=== PATIENT | female | born 1950 | race Caucasian/White ===

== ENCOUNTER 2016-08-09 09:16 | Emergency (ER) | payer MEDICAID ==
[~2016-08-09] VITALS: Ht 162.6 cm; Wt 96.0 kg
[2016-08-09 09:20] VITALS: Ht 162.6 cm; Wt 96.0 kg
[2016-08-09] MEDS ORDERED: ACETAMINOPHEN 325 MG TAB PO ONE (11:00)
--- NOTE | 2016-08-09 11:05 | RADRPT ---
PROCEDURE: XR, Chest. CLINICAL INDICATION: Cough/fever. TECHNIQUE: AP chest COMPARISON: None available. FINDINGS: There is no acute infiltrate in the lungs. There is calcified atherosclerosis of the aortic arch. No pleural effusion. The heart is not enlarged. IMPRESSION: 1. Unremarkable chest x-ray. 2. Calcified atherosclerosis of the aortic arch. RPTAT: GG .Freddy Pandya MD, MD Date Time Electronically viewed and signed by .Freddy Pandya MD, on 08/09/2016 11:05 .Y/
[2016-08-09 11:13] LABS: ADD UMIC YES; URINE BILIRUBIN (Dip) 3+ (NEGATIVE); URINE BLOOD (Dip) 3+ (NEGATIVE); URINE COLOR AMBER (YELLOW); URINE KETONES (Dip) TRACE (NEGATIVE); URINE LEUKOCYTE ESTERASE (Dip) 2+ (NEGATIVE); URINE NITRITE (Dip) POSITIVE (NEGATIVE); URINE TOTAL PROTEIN (Dip) 2+ (NEGATIVE); URINE UROBILINOGEN (Dip) >8.0 E.U./dL (0.1-1.0)
[2016-08-09 11:17] LABS: ADD SCAN DIFF NO
[2016-08-09 11:20] LABS: ICTOTEST POSITIVE (NEGATIVE)
[2016-08-09 11:21] LABS: BACTERIA,URINE MANY; SQUAMOUS EPITHELIAL CELL,UR FEW
[2016-08-09 11:27] LABS: ABNORMAL IP MESSAGE 1; BASOPHILS % 0.2 % (0.0-2.0); HEMATOCRIT 39.2 % (37.0-47.0); HEMOGLOBIN 12.8 g/dl (12.0-16.0); LYMPHOCYTES # 0.5 10^3/ul (0.8-2.9); LYMPHOCYTES % 3.2 % (15.0-51.0); MEAN CORPUSCULAR HEMOGLOBIN 29.1 pg (29.0-33.0); MEAN CORPUSCULAR HGB CONC 32.7 g/dl (32.0-37.0); MEAN CORPUSCULAR VOLUME 89.1 fl (82.0-101.0); MEAN PLATELET VOLUME 10.3 fl (7.4-10.4); MONOCYTE # 0.4 10^3/ul (0.3-0.9); MONOCYTES % 2.5 % (0.0-11.0); NEUTROPHIL # 15.9 10^3/ul (1.6-7.5); NEUTROPHILS % 93.4 % (39.0-77.0); PLATELET COUNT 201 10^3/UL (140-415); RED CELL DISTRIBUTION WIDTH 13.3 % (11.5-14.5)
[2016-08-09 11:28] LABS: ALBUMIN 3.6 g/dl (3.3-4.9); POTASSIUM 4.4 mmol/L (3.5-5.1)
[2016-08-09 11:30] LABS: CREATININE 1.26 mg/dl (0.44-1.00)
[2016-08-09 11:31] LABS: ALBUMIN/GLOBULIN RATIO 0.9; BILIRUBIN,DIRECT 0.3 mg/dl (0.00-0.20); BILIRUBIN,INDIRECT 0.7 mg/dl (0-1.1); CALCIUM 8.6 mg/dl (8.4-10.2); TOTAL PROTEIN 7.6 g/dl (6.1-8.1)
[2016-08-09] MEDS ORDERED: SOD CHLORIDE 0.9% 1,000 ML IV ONE (11:53)
[2016-08-09] MEDS ORDERED: CEFTRIAXONE 1 GM/50 ML (PMX) 50 ML IVPB ONE (12:00)
[2016-08-09] MEDS ORDERED: TYL500 PO (13:35)
[2016-08-09] MEDS ORDERED: CIPR500T4 PO (13:35)
[2016-08-09] MEDS ORDERED: ONDA8TAB14 PO (13:35)
--- NOTE | 2016-08-09 13:37 | ERD ---
ER Documentation Chief Complaint Date/Time DATE: 08/09/16 TIME: 13:35 Chief Complaint fever , lower back pain x 5 days HPI 65-year-old female presents with subjective fevers for the last 5 days. She also has left lower abdominal pain and left flank pain. She denies dysuria, cough, shortness with chest pain. She has a right-sided abdominal pain. ROS All systems reviewed and are negative except as per history of present illness. Medications Home Meds Active Scripts Acetaminophen* (Tylenol*) 500 Mg Tab, 500 MG PO Q4H Y for MILD PAIN LEVEL 1-3, # 14 TAB Prov:LIZZIE MIGUEL MD 08/09/16 Ondansetron (Ondansetron Odt) 8 Mg Tab.rapdis, 8 MG PO Q6H Y for NAUSEA AND/OR VOMITING, #5 TAB Prov:LIZZIE MIGUEL MD 08/09/16 Ciprofloxacin Hcl* (Ciprofloxacin Hcl*) 500 Mg Tablet, 500 MG PO BID for 10 Days , TAB Prov:LIZZIE MIGUEL MD 08/09/16 Allergies Allergies: Coded Allergies: aspirin (Verified Allergy, Unknown, 08/09/16) PMhx/Soc History of Surgery: No Anesthesia Reaction: No Hx Neurological Disorder: No Hx Respiratory Disorders: No Hx Cardiac Disorders: No Hx Psychiatric Problems: No Hx Miscellaneous Medical Probl: No Hx Alcohol Use: No Hx Substance Use: No Hx Tobacco Use: No Physical Exam Vitals Vital Signs Date Time Temp Pulse Resp B/P Pulse Ox O2 Delivery O2 Flow Rate FiO2 08/09/16 09:20 100.5 91 18 121/52 97 Physical Exam Const: [] Head: Atraumatic Eyes: Normal Conjunctiva ENT: Normal External Ears, Nose and Mouth. Neck: Full range of motion..~ No meningismus. Resp: Clear to auscultation bilaterally Cardio: Regular rate and rhythm, no murmurs Abd: Soft, non tender, non distended. Normal bowel sounds Skin: No petechiae or rashes Back: No midline or flank tenderness Ext: No cyanosis, or edema Neur: Awake and alert Psych: Normal Mood and Affect Result Diagram: 08/09/16 1106 08/09/16 1106 Results 24 hrs Laboratory Tests Test 08/09/16 10:36 08/09/16 11:06 Urine Color CLAUDIA Urine Clarity CLEAR Urine pH 5.5 Urine Specific [place] >=1.030 Urine Ketones TRACE Urine Nitrite POSITIVE Urine Bilirubin 3+ Urine Ictotest POSITIVE Urine Urobilinogen >8.0 E.U./dL Urine Leukocyte Esterase 2+ Urine Microscopic RBC 5-10/HPF Urine Microscopic WBC 25-50/HPF Urine Squamous Epithelial Cells FEW Urine Bacteria MANY Urine Hemoglobin 3+ Urine Glucose 0.1%% Urine Total Protein 2+ White Blood Count 17.010^3/ul Red Blood Count 4.4010^6/ul Hemoglobin 12.8g/dl Hematocrit 39.2% Mean Corpuscular Volume 89.1fl Mean Corpuscular Hemoglobin 29.1pg Mean Corpuscular Hemoglobin Concent 32.7g/dl Red Cell Distribution Width 13.3% Platelet Count 60828^3/UL Mean Platelet Volume 10.3fl Neutrophils % 93.4% Lymphocytes % 3.2% Monocytes % 2.5% Eosinophils % 0.0% Basophils % 0.2% Nucleated Red Blood Cells % 0.0/100WBC Neutrophils # 15.910^3/ul Lymphocytes # 0.510^3/ul Monocytes # 0.410^3/ul Eosinophils # 0.010^3/ul Basophils # 0.010^3/ul Nucleated Red Blood Cells # 0.010^3/ul Sodium Level 134mmol/L Potassium Level 4.4mmol/L Chloride Level 96mmol/L Carbon Dioxide Level 25mmol/L Anion Gap 17 Blood Urea Nitrogen 23mg/dl Creatinine 1.26mg/dl Glucose Level 127mg/dl Calcium Level 8.6mg/dl Total Bilirubin 1.0mg/dl Direct Bilirubin 0.30mg/dl Indirect Bilirubin 0.7mg/dl Aspartate Amino Transf (AST/SGOT) 49IU/L Alanine Aminotransferase (ALT/SGPT) 60IU/L Alkaline Phosphatase 162IU/L Total Protein 7.6g/dl Albumin 3.6g/dl Globulin 4.00g/dl Albumin/Globulin Ratio 0.90 Lipase 30U/L Current Medications Medications (Trade) Dose Ordered Sig/Trever Route PRN Reason Start Time Stop Time Status Last Admin Dose Admin Acetaminophen 650 mg 650 mg ONCE ONCE PO 08/09/16 11:00 08/09/16 11:01 DC 08/09/16 11:04 Ceftriaxone Sodium 50 ml @ 100 mls/hr ONCE ONCE IVPB 08/09/16 12:00 08/09/16 12:29 DC 08/09/16 12:43 Sodium Chloride (NS) 1,000 ml @ 0 mls/hr Q0M ONCE IV 08/09/16 11:53 08/09/16 12:02 DC 08/09/16 12:43 Procedures/MDM CBC shows white blood cell count of 17. CMP shows renal insufficiency slight hyponatremia hypochloremia. Patient was given 1 L normal saline IV and urine shows positive leukocytes, nitrites and hemoglobin was sent for culture. Patient was given Rocephin 1 g IV as well. Patient had a benign abdomen on serial exam and felt much better. Patient presents with UTI and febrile illness likely signs of UTI or pyelonephritis. Patient currently appears appropriate for outpatient management will be treated with Cipro instructions for clear fluids at home. She should recheck the next 24 hours for vomiting, worsening pain, new worsening symptoms with primary doctor this week. Signs or symptoms do not suggest appendicitis sepsis, diverticulitis, abscess or acute abdomen but patient should recheck the next day as directed. Departure Diagnosis: Primary Impression: UTI (urinary tract infection) Urinary tract infection type: acute cystitis Hematuria presence: without hematuria Qualified Code: N30.00 - Acute cystitis without hematuria Additional Impression: Fever Fever type: unspecified Qualified Code: R50.9 - Fever, unspecified fever cause Condition: Stable Patient Instructions: Understanding Urinary Tract Infections (UTIs), Fever Control (Adult) Additional Instructions: JESUS MAC . DEAN CRAIG PARA VOMITO , MAS DOLOR, SIMPTOMAS. LIZZIE MIGUEL MD Aug 09, 2016 13:37
[2016-08-09 14:15] VITALS: BP 101/53; PULSE 82; RESP 18; TEMP 99.4
== END 2016-08-09 14:17 | disposition home or self-care (01) ==
LOC: FTE 09:16
DX: N30.00 Acute cystitis without hematuria (principal)
CPT/HCPCS: 36415; 71010; 80053; 81001; 83690; 85025; 87040; 87086; 96374; J0696; J7030; Z7502; Z7610; 81003

== ENCOUNTER 2016-08-10 10:04 | Inpatient (IN) | payer MEDICAID ==
[~2016-08-10] VITALS: Ht 162.6 cm; Wt 96.7 kg
[~2016-08-10 10:04] MED LIST: CIPR500T4 PO; ONDA8TAB14 PO; TYL500 PO
[2016-08-10] MEDS ORDERED: SODIUM CHLORIDE 0.9% 1L BAG IV* STA (11:19)
[2016-08-10] MEDS ORDERED: ONDANSETRON 4 MG INJ IV STA (11:19)
[2016-08-10] MEDS ORDERED: morphine 2 MG INJ IV STA (11:19)
[2016-08-10] MEDS ORDERED: IBUPROFEN 600 MG TAB PO ONE (11:30)
--- NOTE | 2016-08-10 11:48 | ERA ---
ER Documentation Chief Complaint Date/Time DATE: 08/10/16 TIME: 11:39 Chief Complaint Complains of fever x 3 days was seen yesterday asked to come back if worse HPI 65-year-old woman presents with continued fever and suprapubic abdominal pain and left flank pain despite using ciprofloxacin as an outpatient for urinary tract infection. She was seen and evaluated about 5 days ago and diagnosed with UTI and after treatment with ceftriaxone 1 g IV and workup she was discharged with ciprofloxacin to use orally. She states she has been using her antibiotics without relief. Her recent blood culture was also positive for gram -negative rods. She denies headache or blurry vision, no neck pain or stiffness , no chest pain or shortness of breath, no cough, no rash. ROS All systems reviewed and are negative except as per history of present illness. Medications Home Meds Active Scripts Acetaminophen* (Tylenol*) 500 Mg Tab, 500 MG PO Q4H Y for MILD PAIN LEVEL 1-3, # 14 TAB Prov:LIZZIE MIGUEL MD 08/09/16 Ondansetron (Ondansetron Odt) 8 Mg Tab.rapdis, 8 MG PO Q6H Y for NAUSEA AND/OR VOMITING, #5 TAB Prov:LIZZIE MIGUEL MD 08/09/16 Ciprofloxacin Hcl* (Ciprofloxacin Hcl*) 500 Mg Tablet, 500 MG PO BID for 10 Days , TAB Prov:LIZZIE MIGUEL MD 08/09/16 Allergies Allergies: Coded Allergies: aspirin (Verified Allergy, Unknown, 08/09/16) PMhx/Soc Obesity, recent UTI treated as an outpatient with ciprofloxacin, arthritis History of Surgery: No Anesthesia Reaction: No Hx Neurological Disorder: No Hx Respiratory Disorders: No Hx Cardiac Disorders: No Hx Psychiatric Problems: No Hx Miscellaneous Medical Probl: No Hx Alcohol Use: No Hx Substance Use: No Hx Tobacco Use: No Smoking Status: Never smoker FmHx Family History: No diabetes Physical Exam Vitals Vital Signs Date Time Temp Pulse Resp B/P Pulse Ox O2 Delivery O2 Flow Rate FiO2 08/10/16 11:39 Nasal Cannula 08/10/16 11:00 84 20 110/54 99 Room Air 08/10/16 10:10 101.4 102 20 103/46 92 Physical Exam GENERAL: Well-developed, well-nourished, mild discomfort, febrile HEENT: Moist mucous membranes, pink conjunctiva, no cervical spine tenderness or step-off deformities, no goiter, no jaundice or icterus, extraocular movements intact without pain. No submandibular induration, and no pharyngeal erythema NEURO: Alert and oriented 3, cranial nerves II through XII intact bilaterally, pupils equal round reactive to light, no focal deficits or facial asymmetry, sensation intact distally Strength 5/5 in upper and lower extremities bilaterally CARDIAC: Regular rate and rhythm, no murmurs rubs or gallops LUNGS: Clear bilaterally no wheezing crackles or stridor ABDOMEN: Soft nontender, no guarding, no rigidity, no rebound, no psoas sign no obturator sign. Normoactive bowel sounds SKIN: Warm and dry to touch, no abrasions, contusions, or hematomas, no lacerations, no ecchymosis, no target lesions, and without ulcers EXTREMITIES: No clubbing cyanosis or edema, calves are bilaterally symmetrical, no Homans sign, no popliteal cord sign. Distal pulses equal and bilateral PSYCH: Normal affect without agitation or irritability Result Diagram: 08/10/16 1125 08/10/16 1125 Results 24 hrs Laboratory Tests Test 08/10/16 11:25 White Blood Count 13.710^3/ul Red Blood Count 4.0410^6/ul Hemoglobin 12.0g/dl Hematocrit 35.3% Mean Corpuscular Volume 87.4fl Mean Corpuscular Hemoglobin 29.7pg Mean Corpuscular Hemoglobin Concent 34.0g/dl Red Cell Distribution Width 13.3% Platelet Count 05222^3/UL Mean Platelet Volume 11.2fl Neutrophils % 95.4% Lymphocytes % 1.4% Monocytes % 2.1% Eosinophils % 0.1% Basophils % 0.3% Nucleated Red Blood Cells % 0.0/100WBC Neutrophils # 13.110^3/ul Lymphocytes # 0.210^3/ul Monocytes # 0.310^3/ul Eosinophils # 0.010^3/ul Basophils # 0.010^3/ul Nucleated Red Blood Cells # 0.010^3/ul Prothrombin Time 14.8Sec Prothrombin Time Ratio 1.2 INR International Normalized Ratio 1.16 Activated Partial Thromboplast Time 36.5Sec Sodium Level 133mmol/L Potassium Level 3.6mmol/L Chloride Level 96mmol/L Carbon Dioxide Level 21mmol/L Anion Gap 20 Blood Urea Nitrogen 28mg/dl Creatinine 1.25mg/dl Glucose Level 102mg/dl Lactic Acid Level 2.4mmol/L Calcium Level 8.4mg/dl Total Bilirubin 0.9mg/dl Direct Bilirubin 0.40mg/dl Indirect Bilirubin 0.5mg/dl Aspartate Amino Transf (AST/SGOT) 48IU/L Alanine Aminotransferase (ALT/SGPT) 58IU/L Alkaline Phosphatase 218IU/L Troponin I 0.063ng/ml Total Protein 7.9g/dl Albumin 3.5g/dl Globulin 4.40g/dl Albumin/Globulin Ratio 0.79 Lipase 49U/L Current Medications Medications (Trade) Dose Ordered Sig/Trever Route PRN Reason Start Time Stop Time Status Last Admin Dose Admin Morphine Sulfate (morphine) 2 mg ONCE STAT IV 08/10/16 11:19 08/10/16 11:21 DC 08/10/16 11:34 Ondansetron HCl (Zofran Inj) 4 mg ONCE STAT IV 08/10/16 11:19 08/10/16 11:21 DC 08/10/16 11:33 Sodium Chloride (NS) 3,410 ml BOLUS OVER 2 HOURS STAT IV* 08/10/16 11:19 08/10/16 11:21 DC 08/10/16 11:33 Ibuprofen 600 mg 600 mg ONCE ONCE PO 08/10/16 11:30 08/10/16 11:31 DC 08/10/16 11:33 Cefepime HCl (Maxipime 1gm/50 ml (Pmx)) 50 ml @ 100 mls/hr ONCE ONCE IVPB 08/10/16 12:00 08/10/16 12:29 DC 08/10/16 12:13 Procedures/[facility] IV line was established patient was placed on 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 Patient was febrile. Blood and urine cultures have been ordered results are pending I will follow-up. EKG performed, read by me: 88 bpm, normal sinus rhythm, normal axis, no acute ST segment changes, narrow QRS complex, with good R-wave progression in precordial leads. One AP view of the chest performed, read by me reveals no acute infiltrates, normal mediastinum, sharp costophrenic and cardiac borders, no air under the diaphragm. Otherwise unremarkable chest x-ray. CT scan of abdomen and pelvis was performed results were unremarkable. Please refer to radiologist dictation for full report. I reviewed her recent blood cultures and they were positive for gram-negative rods. Recent urine analysis was positive for infection. Patient's infectious symptoms have not stabilized and the patient is at risk of rapid decompensation. The patient will be admitted for careful hydration, antibiotic therapy, and infectious source control. CBC reveals a leukocytosis of 14, electrolytes revealed dehydration and acute kidney injury with a BUN/creatinine of 28/1.3, hyponatremia at 133, liver function tests normal, troponin negative, urine analysis positive. I treated the patient here with cefepime 1 g IV, about 3 L normal saline intravenously, ibuprofen 600 mg p.o. for fever, morphine 2 mg IV and Zofran 4 mg IV with good effect. Severe Sepsis Assessment: Infectious Source: pyleonephritis Patient does not meet criteria for end-organ damage, despite elevated lactic acid at 2.4 her vital signs and respiratory rate are within normal limits, lab criteria unremarkable. Severe Sepsis Managment: Blood Cultures X 2 before broad spectrum antibiotics initiated within 3 hours of recognition. 30 ml/kg NS bolus Completed Initial Lactate: Elevated at 2.4 Repeat Lactate pending Critical Care: Time: 40 minutes, this was time separate from other procedures Treatments/Evaluations: Emergent fluid management, while maintaining close respiratory support. Immediate broad spectrum antibiotic therapy. Simultaneous assessment for possible sources in order to direct therapy. Consideration for invasive and chemical support to prevent respiratory or cardiac collapse. Septic Shock Assessment (1 hour post 30 ml/kg fluid bolus): Hypotension (SBP < 90 or 40 mmHg drop, MAP < 65): No Lactic acid > 4.0 No Perfusion Reassessment for Septic Shock: Temp afebrile, pulse 84, respiratory rate 18 breaths per minute, blood pressure 120/80, Heart Exam: Regular rate and rhythm Lung Exam: No Crackles Capillary Refill: Less than 2 second Peripheral Pulses: Radially present Skin: [place], warm and dry Hypotensive Treatment (not required for isolated lactic acid elevation): Comfort Care: No Central LIne: Not indicated Vasopressor started: Not indicated I considered further perfusion assessment with CVP measurement, SCVO2, bedside ultrasound volume assessment, passive leg raise, trial of further fluid bolus. And preceded with IV antibiotics and IV fluid resuscitation Accepting Care Team: Current data and ongoing care discussed. Time: Time of admission Primary Provider: Hospitalist Consulting: Infectious disease Outstanding Data: none Departure Diagnosis: Primary Impression: UTI (urinary tract infection) Qualified Code: N30.00 - Acute cystitis without hematuria Additional Impressions: Sepsis Qualified Code: A41.51 - Sepsis due to Escherichia coli Positive blood cultures Hyponatremia Acute kidney injury Condition: BECKY Uribe MD August 10, 2016 11:48
[2016-08-10 11:51] LABS: ADD SCAN DIFF NO
[2016-08-10 11:59] LABS: ABNORMAL IP MESSAGE 1; BASOPHILS % 0.3 % (0.0-2.0); EOSINOPHILS % 0.1 % (0.0-7.0); HEMATOCRIT 35.3 % (37.0-47.0); LYMPHOCYTES # 0.2 10^3/ul (0.8-2.9); LYMPHOCYTES % 1.4 % (15.0-51.0); MEAN CORPUSCULAR HEMOGLOBIN 29.7 pg (29.0-33.0); MEAN CORPUSCULAR VOLUME 87.4 fl (82.0-101.0); MEAN PLATELET VOLUME 11.2 fl (7.4-10.4); MONOCYTE # 0.3 10^3/ul (0.3-0.9); MONOCYTES % 2.1 % (0.0-11.0); NEUTROPHIL # 13.1 10^3/ul (1.6-7.5); PLATELET COUNT 190 10^3/UL (140-415); RED BLOOD COUNT 4.04 10^6/ul (4.20-5.40); RED CELL DISTRIBUTION WIDTH 13.3 % (11.5-14.5); WHITE BLOOD COUNT 13.7 10^3/ul (4.8-10.8)
[2016-08-10] MEDS ORDERED: CEFEPIME 1GM/50 ML (PMX) 50 ML IVPB ONE (12:00)
--- NOTE | 2016-08-10 12:02 | RADRPT ---
PROCEDURE: XR Chest. CLINICAL INDICATION: Cough. Sepsis. TECHNIQUE: Single frontal view. COMPARISON: 08 09 16. FINDINGS: The lungs are clear. The heart size is normal. There is calcification in the aorta consistent with atherosclerosis. There is no pleural effusion. There is no pneumothorax. IMPRESSION: 1. Atherosclerosis. 2. Otherwise normal chest x-ray. RPTAT: QQ .Minesh Vázquez MD, MD Date Time Electronically viewed and signed by .Minesh Vázquez MD, MD on 08/10/2016 12:02 .R/
[2016-08-10 12:05] LABS: NEUTROPHILS % 95.4 % (39.0-77.0)
[2016-08-10 12:14] LABS: ALBUMIN 3.5 g/dl (3.3-4.9); POTASSIUM 3.6 mmol/L (3.5-5.1)
[2016-08-10 12:16] LABS: CREATININE 1.25 mg/dl (0.44-1.00)
[2016-08-10 12:17] LABS: ALBUMIN/GLOBULIN RATIO 0.79; BILIRUBIN,DIRECT 0.4 mg/dl (0.00-0.20); BILIRUBIN,INDIRECT 0.5 mg/dl (0-1.1); BILIRUBIN,TOTAL 0.9 mg/dl (0.2-1.3); CALCIUM 8.4 mg/dl (8.4-10.2); TOTAL PROTEIN 7.9 g/dl (6.1-8.1)
[2016-08-10 12:25] LABS: INR 1.16; PROTIME 14.8 Sec (12.2-14.2); PT RATIO 1.2
[2016-08-10 12:26] LABS: PARTIAL THROMBOPLASTIN TIME 36.5 Sec (25.0-35.0)
[2016-08-10 12:27] LABS: TROPONIN-I 0.063 ng/ml (0.00-0.12)
--- NOTE | 2016-08-10 12:56 | RADRPT ---
PROCEDURE: CT Abdomen and Pelvis without contrast. CLINICAL INDICATION: Abdominal and pelvic pain. TECHNIQUE: CT scan of the abdomen and pelvis without contrast was performed. Coronal and sagittal reformatted images were obtained from the axial source images. Images were reviewed on a high-res[employer] PACS workstation. Total exam DLP is 1351.81 mGy-cm. CTDIvol is 21.33 mGy. One or more of the following dose reduction techniques were used: Automated exposure control, adjustment of the mA and/ or kV according to patient size, use of iterative reconstruction technique. COMPARISON: None. FINDINGS: The lung bases are normal. There is no pleural effusion. The liver is normal in size and mildly diffusely decreased in attenuation. There is no focal hepati c lesion. The gallbladder and bile ducts are normal. The spleen is normal in size. There is no focal splenic lesion. Both adrenals are normal with no enlargement or mass. The pancreas is unremarkable with no mass or evidence of pancreatitis. There is no renal mass or hydronephrosis. There is no renal calculus or ureteral calculus. The abdominal aorta is not dilated. There is calcification in the aorta consistent with atherosclero sis. There is no retroperitoneal lymphadenopathy or mass. There is no pelvic lymphadenopathy or mass. The bladder and distal ureters are normal. The periappendiceal region is unremarkable with no evidence of appendicitis. The bowel and mesentery are normal. There is no free fluid or free gas. There are degenerative changes of the spine and hips. The osseous structures are otherwise unremark able with no fracture or lytic lesion. IMPRESSION: 1. Fatty metamorphosis of the liver. 2. Atherosclerosis. 3. Degenerative changes of the spine and hips. 4. Otherwise unremarkable CT scan of the abdomen and pelvis. RPTAT: QQ .Minesh Vázquez MD, Date Time Electronically viewed and signed by .Minesh Vázquez MD, MD on 08/10/2016 12:56 .R/
[2016-08-10 13:06] VITALS: TEMP 98.6
[2016-08-10 13:58] LABS: ADD UMIC YES; URINE BILIRUBIN (Dip) NEGATIVE (NEGATIVE); URINE BLOOD (Dip) TRACE (NEGATIVE); URINE COLOR LT. YELLOW (YELLOW); URINE GLUCOSE (Dip) NEGATIVE (NEGATIVE); URINE KETONES (Dip) TRACE (NEGATIVE); URINE LEUKOCYTE ESTERASE (Dip) NEGATIVE (NEGATIVE); URINE NITRITE (Dip) NEGATIVE (NEGATIVE); URINE TOTAL PROTEIN (Dip) NEGATIVE (NEGATIVE); URINE UROBILINOGEN (Dip) 2.0 E.U./dL (0.1-1.0)
[2016-08-10] MEDS ORDERED: ONDANSETRON 4 MG INJ IV PRN (14:00)
[2016-08-10] MEDS ORDERED: NACL 0.9% 3 ML SYG IV SCH (14:00)
[2016-08-10] MEDS ORDERED: ACETAMINOPHEN 325 MG TAB PO PRN (14:00)
[2016-08-10 14:08] LABS: BACTERIA,URINE FEW; URINE RBCS 0-2 /HPF (0)
[2016-08-10] MEDS ORDERED: IMIPENEM-CILAST 500MG IV (PMX) 100 ML IVPB ONE (14:30)
--- NOTE | 2016-08-10 15:20 | HP ---
DATE OF ADMISSION: 08/10/2016 TIME OF EVALUATION: 1400 REASON FOR ADMISSION: Fevers, bilateral flank pain, suprapubic pain. Positive blood cultures and positive urine culture. CONSULTATIONS: Bryan Clark MD, infectious diseases HISTORY OF PRESENT ILLNESS: This is a 65-year-old female who denies any significant past medical history. She came to the emergency room on 2016 with complaints of fevers and low back pain that have been going on for 5 days. The patient was discharged home on ciprofloxacin for suspected urinary tract infection. The patient's blood cultures and urine cultures drawn from showed gram-negative bacteria. Hence, the patient was called back to the emergency room for further treatment and evaluation. In the emergency room , the patient was noticed to have a fever of 101.4. The patient also had underlying lactic acidosis. The patient's WBC was 13.7. The patient had a BUN and creatinine of 28 and 1.25 respectively. The patient's urinalysis was negative for any leukocyte esterase or nitrite. The patient was treated with IV fluids, IV analgesics, antiemetics and a single dose of IV cefepime. The patient was complaining of bilateral flank pain and suprapubic pain. The patient verbalized a single episode of diarrhea on 08/09/2016. She was complaining of fevers and chills. The patient denied any chest pain, dyspnea, hypoxia, nausea, or vomiting. PAST MEDICAL HISTORY: Denies. PAST SURGICAL HISTORY: Denies. HOME MEDICATIONS: Ciprofloxacin 500 mg p.o. b.i.d. for 10 days. ALLERGIES: ASPIRIN. SOCIAL HISTORY: The patient lives at home with her family. She denies any history of tobacco, alcohol or illicit drug use. REVIEW OF SYSTEMS: A 12-point review of systems was made and the review of systems was negative other than what is mentioned in history of present illness. PHYSICAL EXAMINATION: VITAL SIGNS: Temperature 98.6, pulse rate 81, respiratory rate 17, blood pressure 95/55, oxygen saturation 95% on room air. GENERAL: This is an obese female lying in bed in no apparent distress. HEENT: Head normocephalic and atraumatic. Eyes: Anicteric sclerae. Conjunctivae clear. Ears, Nose, Throat: Nasal septum is midline. Oral mucosa is dry. NECK: Supple. No JVD noticed. RESPIRATORY: Bilaterally clear to auscultation. No adventitious breath sounds heard. No use of accessory muscles of respiration. CARDIAC: Regular rate and rhythm. No murmurs heard. ABDOMEN: Soft. Diffuse suprapubic tenderness. GENITOURINARY: Deferred. EXTREMITIES: No cyanosis, no clubbing, no edema. Peripheral pulses are palpable. NEUROLOGIC: The patient is awake, alert and oriented. Cranial nerves are grossly intact. LABORATORY AND DIAGNOSTIC DATA: WBC 13.7, hemoglobin 12.0, hematocrit 35.3, platelet count 190. Sodium 133, potassium 3.6, chloride 96, carbon dioxide 21, anion gap 20, BUN 28, creatinine 1.25, glucose 102, lactic acid 2.4, calcium 8.4 , AST 48, ALT 50, alkaline phosphatase 218. PT 14.8, INR 1.163, PTT 36.5. Urinalysis: Urine nitrite negative, urine leukocyte esterase negative. Urine microscopic WBCs 0 to 2. Chest x-ray: Atherosclerosis. Otherwise, normal chest x-ray. CT scan of the abdomen and pelvis: Fatty metamorphosis of the liver. Atherosclerosis. Degenerative joint changes of the spine and hips. IMPRESSION: This is a 65-year-old female who came to the emergency room on 08/09/2016 and was discharged home on oral antibiotics for possible underlying urinary tract infection whose blood culture and urine cultures were showing gram-negative bacteria who will be admitted here for further treatment and evaluation. ASSESSMENT AND PLAN: 1. Sepsis with underlying urinary tract infection and gram-negative bacteremia. Etiology could be most probably secondary to underlying urinary tract infection. The patient has no evidence of any septic shock. The patient' s lactic acid levels will be trended. The patient was started on appropriate antibiotics. Repeat mullen-cultures will be obtained. An infectious disease consult will be obtained on this patient. 2. Urinary tract infection. The patient will be adequately treated with antibiotics. The patient will be provided with adequate IV fluids. 3. Acute kidney injury (presumed). BUN and creatinine of 28 and 1.25 respectively. Baseline creatinine unclear. The patient will be maintained on IV fluids. Nephrotoxic drugs will be used with caution. 4. Obesity. Body mass index of 39.1 kg/sq m. A fasting lipid panel will be obtained. A hemoglobin A1C will be obtained. Plan: The patient will be admitted to inpatient medical/surgical floor. The patient will be started on a regular diet. The patient will be started on deep vein thrombosis prophylaxis and gastrointestinal prophylaxis. The rest of the patient's management will be based on the clinical course, the results of diagnostic studies and inputs from consultants. Based on the patient's clinical presentation, she most probably requires at least a 2-midnights' stay for further management and evaluation of her clinical presentation. The case and management of this patient were fully discussed with Dr. Rodrigues. JACK RODRIGUES MD, AM/JOLANTA Conf#: [id number] DID#: [id number] MTDD
[2016-08-10] MEDS: morphine 2 MG INJ IV PRN (17:18)
[2016-08-10] MEDS: SOD CHLORIDE 0.9% 1,000 ML IV SCH (17:19)
[2016-08-10 19:40] VITALS: BP 140/62; RESP 21
[2016-08-10 19:53] VITALS: Ht 162.6 cm; Wt 96.7 kg
--- NOTE | 2016-08-10 20:18 | CONS ---
DATE OF ADMISSION: 08/10/2016 DATE OF CONSULTATION: 08/10/2016 TYPE OF CONSULTATION: Infectious disease. REASON FOR CONSULTATION: Antibiotic management. HISTORY OF PRESENT ILLNESS: Cindy Antony a 65-year-old female who comes in with fever, bilateral flank pain, suprapubic pain, positive blood cultures, and positive urine culture. The patient is a 65-year-old female without past medical history. She came to the emergency room on 08/09/2016 with complaints of fever and low back pain that had been going on for 5 days. She was d ischarged home on ciprofloxacin for suspected UTI. The patient's blood cultures and urine cultures drawn on 08/09/2016 show gram-negative rods. Therefore, she was called back to the emergency room. She had a temperature of 101.4. Her white count was 13.7, H and H of 12 and 35.3, platelet count 1 90,000. BUN and creatinine 28/1.25. Lactic acid 2.4. AST 48, ALT 50. Urine: Nitrite was negativ e, urine leukocyte esterase negative, urine microscopic 0 to 2. Chest x-ray was normal. 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 PAST MEDICAL HISTORY: Operations as outlined. FAMILY HISTORY: Noncontributory. SOCIAL HISTORY: She lives at home. She does not smoke, drink, or abuse drugs. ALLERGIES: 1. NONE TO PENICILLIN, SULFA, OR FOODS. 2. SHE IS ALLERGIC TO ASPIRIN. MEDICATIONS: Per chart. REVIEW OF SYSTEMS: As per HPI. PHYSICAL EXAMINATION: GENERAL: The patient is an obese male who is awake, responsive, in no acute distress. VITAL SIGNS: Stable. She is afebrile. SKIN: Without generalized rash. HEENT: Within normal limits. NECK: Supple. LYMPH NODES: None palpable. CHEST: Decreased breath sounds at the bases. HEART: Without murmur or gallop. ABDOMEN: Soft. She has diffuse suprapubic tenderness without organosplenomegaly or masses. EXTREMITIES: Without cyanosis, clubbing, or edema. RECTAL AND GENITAL: Deferred. NEUROLOGIC: No focal neurological abnormality. IMPRESSION AND PLAN: The patient comes in now with urinary tract infection with sepsis with gram-ne gative rods. She clearly has a urinary tract infection with sepsis. She was begun on cefepime. Sh rahul was given 1 dose of imipenem and then switched to cefepime. We will continue her on this regimen for the time being. I will dictate my findings to hospitalists. Dictated By: LEATHA ELILS MD, JD/JOLANTA Conf#: [id number] DID#: [id number] CC: RYANNE WEBB MD;*[facility]*
[2016-08-10] MEDS: FAMOTIDINE 20 MG TAB PO SCH (22:04)
[2016-08-10] MEDS: HEPARIN 5,000 UNIT/0.5 ML VIAL SC SCH (22:07)
[2016-08-10] MEDS: CEFEPIME 2GM/50 ML (PMX) 50 ML IVPB SCH (22:38)
[2016-08-11] MEDS: morphine 2 MG INJ IV PRN ×3 (01:36→10:29)
[2016-08-11] MEDS: SOD CHLORIDE 0.9% 1,000 ML IV SCH ×3 (03:15→14:25)
[2016-08-11 05:37] LABS: ADD SCAN DIFF NO
[2016-08-11 05:44] LABS: BASOPHILS % 0.3 % (0.0-2.0); EOSINOPHILS # 0.1 10^3/ul (0.0-0.5); EOSINOPHILS % 0.3 % (0.0-7.0); HEMATOCRIT 33.6 % (37.0-47.0); LYMPHOCYTES # 0.6 10^3/ul (0.8-2.9); LYMPHOCYTES % 4.3 % (15.0-51.0); MEAN CORPUSCULAR HEMOGLOBIN 28.9 pg (29.0-33.0); MEAN CORPUSCULAR HGB CONC 32.7 g/dl (32.0-37.0); MEAN CORPUSCULAR VOLUME 88.2 fl (82.0-101.0); MEAN PLATELET VOLUME 11.1 fl (7.4-10.4); MONOCYTE # 0.8 10^3/ul (0.3-0.9); MONOCYTES % 5.2 % (0.0-11.0); NEUTROPHILS % 89.1 % (39.0-77.0); PLATELET COUNT 207 10^3/UL (140-415); RED BLOOD COUNT 3.81 10^6/ul (4.20-5.40); RED CELL DISTRIBUTION WIDTH 14.2 % (11.5-14.5); WHITE BLOOD COUNT 14.6 10^3/ul (4.8-10.8)
[2016-08-11 06:23] LABS: CHOL/HDL RATIO 9.5 RATIO; MAGNESIUM 2.5 mg/dl (1.7-2.5); PHOSPHORUS 2.5 mg/dl (2.5-4.9)
[2016-08-11 06:48] LABS: ALBUMIN 2.9 g/dl (3.3-4.9); POTASSIUM 3.6 mmol/L (3.5-5.1)
[2016-08-11 06:51] LABS: ALBUMIN/GLOBULIN RATIO 0.72; BILIRUBIN,INDIRECT 0.3 mg/dl (0-1.1); BILIRUBIN,TOTAL 0.3 mg/dl (0.2-1.3); CREATININE 0.67 mg/dl (0.44-1.00); TOTAL PROTEIN 6.9 g/dl (6.1-8.1)
[2016-08-11] MEDS: HYDROCODONE/APAP (5/325) TAB PO PRN ×3 (07:49→18:16)
[2016-08-11 08:19] VITALS: BP 156/69; RESP 18
[2016-08-11] MEDS: FAMOTIDINE 20 MG TAB PO SCH ×2 (09:47→20:51)
[2016-08-11] MEDS: CEFEPIME 2GM/50 ML (PMX) 50 ML IVPB SCH (09:47)
[2016-08-11] MEDS: CHOLECALCIFEROL 1,000 UNIT TAB PO SCH (09:47)
[2016-08-11] MEDS: HEPARIN 5,000 UNIT/0.5 ML VIAL SC SCH ×2 (09:54→20:50)
--- NOTE | 2016-08-11 13:26 | PN ---
Date/Time of Note Date/Time of Note DATE: 08/11/16 TIME: 13:21 Assessment/Plan VTE Prophylaxis VTE Prophylaxis Intervention: heparin Lines/Catheters IV Catheter Type (from Nrsg): Peripheral IV Urinary Cath still in place: No Assessment/Plan Assessment/Plan 1. Urinary tract infection, improving, on cefepime 2. Bacteremia, on cefepime 3. Acute renal failure, from ATN, improved 4. Obesity Subjective 24 Hr Interval Summary Free Text/Dictation feels better. no pain . T 1001 Exam/Review of Systems Vital Signs Vitals Vital Signs Date Time Temp Pulse Resp B/P Pulse Ox O2 Delivery O2 Flow Rate FiO2 08/11/16 08:19 100.1 18 18 156/69 97 08/10/16 18:46 Room Air Intake and Output 08/10/16 08/10/16 08/11/16 15:00 23:00 07:00 Intake Total 3560 ml 1550 ml Output Total 1100 ml Balance 3560 ml 450 ml Exam Constitutional: alert, oriented, well developed Psych: nl mood/affect, no complaints Head: atraumatic, normocephalic Eyes: EOMI, PERRL, nl conjunctiva, nl lids, nl sclera ENMT: nl external ears & nose, nl lips & teeth, nl nasal mucosa & septum Neck: non-tender, supple Respiratory: clear to auscultation, normal air movement, No congested cough, No crackles/rales, No diminished breath sounds, No intercostal retraction, No labored breathing, No other, No respirations, No tactile fremitus, No wheezing Cardiovascular: nl pulses, regular rate and rhythm, No S3, No S4, No bruits, No diastolic murmur, No edema, No gallop, No irregular rhythm, No jugular venous distention (JVD), No murmurs/extra sounds, No other, No rub, No systolic murmur Gastrointestinal: nl liver, spleen, non-tender, soft, No ascites, No bowel sounds, No distended, No firm, No hepatomegaly, No mass , No other, No rebound or guarding, No splenomegaly, No surgical scars, No tender Musculoskeletal: nl extremities to inspection Extremities: normal pulses, No calf tenderness, No clubbing, No cyanosis, No edema, No other, No palpable cord, No pitting pedal edema, No tenderness Neurological: CALTRANS EQUIPMENT OPERATOR II-XII intact, nl mental status, nl speech, nl strength Skin: nl turgor Lymph: nl lymph nodes Results Result Diagram: 08/11/16 0516 08/11/16 0516 Results 24 hrs Laboratory Tests Test 08/10/16 13:40 08/10/16 14:20 08/10/16 16:30 08/11/16 05:16 Urine Color LT. YELLOW Urine Clarity CLEAR Urine pH 5.5 Urine Specific [place] <=1.005 L Urine Ketones TRACE H Urine Nitrite NEGATIVE Urine Bilirubin NEGATIVE Urine Urobilinogen 2.0 E.U./dL H Urine Leukocyte Esterase NEGATIVE Urine Microscopic RBC 0-2 Urine Microscopic WBC 0-2 Urine Epithelial Cells FEW Urine Amorphous Urates FEW Urine Bacteria FEW Urine Hemoglobin TRACE Urine Glucose NEGATIVE Urine Total Protein NEGATIVE Lactic Acid Level 1.2 1.7 White Blood Count 14.6 H Red Blood Count 3.81 L Hemoglobin 11.0 L Hematocrit 33.6 L Mean Corpuscular Volume 88.2 Mean Corpuscular Hemoglobin 28.9 L Mean Corpuscular Hemoglobin Concent 32.7 Red Cell Distribution Width 14.2 Platelet Count 207 Mean Platelet Volume 11.1 H Neutrophils % 89.1 H Lymphocytes % 4.3 L Monocytes % 5.2 Eosinophils % 0.3 Basophils % 0.3 Nucleated Red Blood Cells % 0.0 Neutrophils # 13.0 H Lymphocytes # 0.6 L Monocytes # 0.8 Eosinophils # 0.1 Basophils # 0.0 Nucleated Red Blood Cells # 0.0 Sodium Level 140 Potassium Level 3.6 Chloride Level 108 # Carbon Dioxide Level 20 L Anion Gap 16 Blood Urea Nitrogen 19 # Creatinine 0.67 Glucose Level 104 Calcium Level 8.0 L Phosphorus Level 2.5 Magnesium Level 2.5 Total Bilirubin 0.3 Direct Bilirubin 0.00 # Indirect Bilirubin 0.3 Aspartate Amino Transf (AST/SGOT) 64 H Alanine Aminotransferase (ALT/SGPT) 63 Alkaline Phosphatase 180 H Total Protein 6.9 # Albumin 2.9 L Globulin 4.00 H Albumin/Globulin Ratio 0.72 Triglycerides Level 399 H Cholesterol Level 171 LDL Cholesterol, Calculated 73 HDL Cholesterol 18 L Cholesterol/HDL Ratio 9.5 Medications Medications Current Medications Ondansetron HCl (Zofran Inj) 4 mg Q6H PRN IV NAUSEA AND/OR VOMITING Last administered on 08/10/16t 17:18; Admin Dose 4 MG; Start 08/10/16 at 14:00 Acetaminophen (Tylenol Tab) 650 mg Q6H PRN PO PAIN LEVEL 1-3 OR FEVER; Start at 14:00 Acetaminophen/ Hydrocodone Bitart ([place] (5/325)) 1 tab Q6H PRN PO MODERATE PAIN LEVEL 4-6 Last administered on 08/11/16 07:49; Admin Dose 1 TAB; Start 08/10 at 14:00 Morphine Sulfate (morphine) 2 mg Q4H PRN IV SEVERE PAIN LEVEL 7-10 Last administered on 08/11/16 10:29; Admin Dose 2 MG; Start 08/10/16 at 14:00 Famotidine (Pepcid) 20 mg Q12 PO Last administered on 08/11/16 09:47; Admin Dose 20 MG; Start 08/10/16 at 21:00 Heparin Sodium (Porcine) 5000 unit 5,000 unit Q12 SC Last administered on 09:54; Admin Dose 5,000 UNIT; Start 08/10/16 at 21:00 Sodium Chloride 1,000 ml @ 100 mls/hr Q10H IV Last administered on 08/11/16 10 :31; Admin Dose 100 MLS/HR; Start 08/10/16 at 14:30 Cefepime HCl (Maxipime 2gm/50 ml (Pmx)) 50 ml @ 100 mls/hr Q12 IVPB Last administered on 08/11/16 09:47; Admin Dose 100 MLS/HR; Start 08/10/16 at 21:00 Cholecalciferol (Vitamin D) 1,000 unit DAILY PO Last administered on 08/11/16 09:47; Admin Dose 1,000 UNIT; Start 08/11/16 at 09:00 LINK ROSS MD August 11, 2016 13:26
[2016-08-11] MEDS: CEFTRIAXONE 1 GM/50 ML (PMX) 50 ML IVPB SCH (15:22)
--- NOTE | 2016-08-11 16:07 | PN ---
DATE: 08/11/2016 SUBJECTIVE: No acute changes overnight. The patient is awake, looks comfortable, still with low gr jocelyn fevers today. Temperature max yesterday was 101.4. LABORATORY DATA: WBC 14.6, H and H 11 and 33.6, platelets 207, neutrophils 89.1. BUN 19, creatinin e 0.67. MICROBIOLOGY: Blood culture on 08/09/2016 and urine culture grew E. coli susceptible to all antibio tics. Repeat blood cultures from yesterday have been negative. Urine culture has been negative. DIAGNOSTICS: CT of the abdomen and pelvis revealed no obstruction. Chest x-ray showed no pneumonia , clear lung [place]. ANTIMICROBIALS: The patient is on cefepime. PHYSICAL EXAMINATION: GENERAL: Morbidly obese, well-developed, elderly woman who is awake, in no distress. HEENT: Head atraumatic, normocephalic. Sclerae anicteric. Buccal mucosa dry. NECK: Obese. CHEST: Rise symmetrical. Breath sounds clear. HEART: S1, S2. ABDOMEN: Obese, soft, bowel sounds present. EXTREMITIES: Without cyanosis. ASSESSMENT: 1. Sepsis with Escherichia coli bacteremia secondary to #2. 2. Escherichia coli urinary tract infection. 3. Morbid obesity. PLAN: The patient remains stable. We are going to change antibiotics to Rocephin. We will check p ostvoid residuals to make sure she is not retaining urine. Anticipate discharge on oral Levaquin fo r 2 weeks, once she is medically clear, to cover E. coli bacteremia. Dictated By: JOAN POLK BACKUP ADMINISTRATIVE COORDINATOR for LEATHA DIOR/JOLANTA Conf#: [id number] DID#: [id number]
[2016-08-11 19:48] VITALS: BP 159/72; RESP 21
[2016-08-12] MEDS: SOD CHLORIDE 0.9% 1,000 ML IV SCH ×2 (02:32→14:31)
[2016-08-12] MEDS: HYDROCODONE/APAP (5/325) TAB PO PRN ×3 (02:32→14:31)
[2016-08-12 05:29] LABS: ADD SCAN DIFF NO
[2016-08-12 05:48] LABS: ALBUMIN 2.9 g/dl (3.3-4.9)
[2016-08-12 05:49] LABS: POTASSIUM 4.5 mmol/L (3.5-5.1)
[2016-08-12 05:51] LABS: ALBUMIN/GLOBULIN RATIO 0.82; BILIRUBIN,INDIRECT 0.3 mg/dl (0-1.1); BILIRUBIN,TOTAL 0.3 mg/dl (0.2-1.3); CREATININE 0.65 mg/dl (0.44-1.00); TOTAL PROTEIN 6.4 g/dl (6.1-8.1)
[2016-08-12 05:52] LABS: CALCIUM 8.2 mg/dl (8.4-10.2)
[2016-08-12 06:23] LABS: BASOPHIL # 0.1 10^3/ul (0.0-0.1); BASOPHILS % 0.6 % (0.0-2.0); EOSINOPHILS # 0.2 10^3/ul (0.0-0.5); EOSINOPHILS % 1.3 % (0.0-7.0); HEMATOCRIT 34.4 % (37.0-47.0); HEMOGLOBIN 11.2 g/dl (12.0-16.0); LYMPHOCYTES # 1.5 10^3/ul (0.8-2.9); LYMPHOCYTES % 10.4 % (15.0-51.0); MEAN CORPUSCULAR HEMOGLOBIN 29.2 pg (29.0-33.0); MEAN CORPUSCULAR HGB CONC 32.6 g/dl (32.0-37.0); MEAN CORPUSCULAR VOLUME 89.8 fl (82.0-101.0); MEAN PLATELET VOLUME 11.2 fl (7.4-10.4); MONOCYTE # 0.9 10^3/ul (0.3-0.9); MONOCYTES % 6.1 % (0.0-11.0); NEUTROPHIL # 11.4 10^3/ul (1.6-7.5); NEUTROPHILS % 80.1 % (39.0-77.0); PLATELET COUNT 262 10^3/UL (140-415); RED BLOOD COUNT 3.83 10^6/ul (4.20-5.40); RED CELL DISTRIBUTION WIDTH 14.6 % (11.5-14.5); WHITE BLOOD COUNT 14.2 10^3/ul (4.8-10.8)
[2016-08-12] MEDS: morphine 2 MG INJ IV PRN ×3 (07:00→18:12)
[2016-08-12 08:04] VITALS: BP 170/76; RESP 20
[2016-08-12] MEDS: FAMOTIDINE 20 MG TAB PO SCH ×2 (08:50→20:58)
[2016-08-12] MEDS: CHOLECALCIFEROL 1,000 UNIT TAB PO SCH (08:51)
[2016-08-12] MEDS: HEPARIN 5,000 UNIT/0.5 ML VIAL SC SCH ×2 (09:01→21:00)
[2016-08-12 09:45] VITALS: BP 152/76; PULSE 74; RESP 20
--- NOTE | 2016-08-12 12:32 | PN ---
DATE: 08/12/2016 SUBJECTIVE: No acute changes. The patient is awake, still has flank pain. She is in no distress. VITAL SIGNS: T-max yesterday was 99.9. LABORATORIES: WBC today 14.2, H and H 11.2 and 34.4, platelets 262, neutrophils 80.1, no bands. BU N 16, creatinine 0.65. MICROBIOLOGY: Blood cultures and urine culture on 08/09/2016 grew E. coli susceptible to all antibi otics. Repeat blood cultures on this admission negative. ANTIMICROBIALS: The patient is on Rocephin. PHYSICAL EXAMINATION: GENERAL: Morbidly obese elderly woman who is awake, in no distress. HEENT: Head atraumatic, normocephalic. Sclerae anicteric. Buccal mucosa dry. NECK: Supple, trachea midline. CHEST: Rise symmetrical. Breath sounds clear. HEART: S1, S2. ABDOMEN: Soft, bowel tones present. EXTREMITIES: Without cyanosis. ASSESSMENT: 1. Acute pyelonephritis with Escherichia coli bacteremia. 2. Morbid obesity. PLAN: The patient remains stable on appropriate antimicrobials. Continue present care. Await clin ical improvement and anticipate discharge on oral Levaquin for 2 weeks. Dictated By: JOAN POLK COMMERCIAL PROPERTY MANAGER for LEATHA DIOR/JOLANTA Conf#: [id number] DID#: [id number]
--- NOTE | 2016-08-12 13:20 | PN ---
Date/Time of Note Date/Time of Note DATE: 08/12/16 TIME: 13:18 Assessment/Plan VTE Prophylaxis VTE Prophylaxis Intervention: heparin Lines/Catheters IV Catheter Type (from Nrsg): Peripheral IV Urinary Cath still in place: No Assessment/Plan Assessment/Plan 1. Urinary tract infection, improving, on cefepime 2. Bacteremia, on cefepime 3. Acute renal failure, from ATN, improved 4. Obesity 5. Right lower back pain from muscle sprain, lidocaine patch/soma and toradol prn Subjective 24 Hr Interval Summary Free Text/Dictation severe right lower back pain Exam/Review of Systems Vital Signs Vitals Vital Signs Date Time Temp Pulse Resp B/P Pulse Ox O2 Delivery O2 Flow Rate FiO2 08/12/16 08:04 98.5 71 20 170/76 92 08/10/16 18:46 Room Air Intake and Output 08/11/16 08/11/16 08/12/16 15:00 23:00 07:00 Intake Total 500 ml 1600 ml Output Total 800 ml 500 ml Balance -300 ml 1100 ml Exam Constitutional: alert, oriented, well developed Psych: nl mood/affect, no complaints Head: atraumatic, normocephalic Eyes: EOMI, PERRL, nl conjunctiva, nl lids ENMT: nl external ears & nose, nl lips & teeth, nl nasal mucosa & septum Neck: non-tender, supple Respiratory: clear to auscultation, normal air movement, No congested cough, No crackles/rales, No diminished breath sounds, No intercostal retraction, No labored breathing, No other, No respirations, No tactile fremitus, No wheezing Cardiovascular: nl pulses, regular rate and rhythm, No S3, No S4, No bruits, No diastolic murmur, No edema, No gallop, No irregular rhythm, No jugular venous distention (JVD), No murmurs/extra sounds, No other, No rub, No systolic murmur Gastrointestinal: nl liver, spleen, non-tender, soft, No ascites, No bowel sounds, No distended, No firm, No hepatomegaly, No mass , No other, No rebound or guarding, No splenomegaly, No surgical scars, No tender Musculoskeletal: nl extremities to inspection Extremities: normal pulses, No calf tenderness, No clubbing, No cyanosis, No edema, No other, No palpable cord, No pitting pedal edema, No tenderness Neurological: TRICK RODEO RIDER II-XII intact, nl mental status, nl speech, nl strength Skin: nl turgor Lymph: nl lymph nodes Results Result Diagram: 08/12/160 08/12/16 0450 Results 24 hrs Laboratory Tests Test 08/12/16 04:50 White Blood Count 14.2 H Red Blood Count 3.83 L Hemoglobin 11.2 L Hematocrit 34.4 L Mean Corpuscular Volume 89.8 Mean Corpuscular Hemoglobin 29.2 Mean Corpuscular Hemoglobin Concent 32.6 Red Cell Distribution Width 14.6 H Platelet Count 262 # Mean Platelet Volume 11.2 H Neutrophils % 80.1 H Lymphocytes % 10.4 L Monocytes % 6.1 Eosinophils % 1.3 Basophils % 0.6 Nucleated Red Blood Cells % 0.0 Neutrophils # 11.4 H Lymphocytes # 1.5 Monocytes # 0.9 Eosinophils # 0.2 Basophils # 0.1 Nucleated Red Blood Cells # 0.0 Sodium Level 141 Potassium Level 4.5 Chloride Level 105 Carbon Dioxide Level 24 Anion Gap 17 H Blood Urea Nitrogen 16 Creatinine 0.65 Glucose Level 101 Calcium Level 8.2 L Magnesium Level 2.6 H Total Bilirubin 0.3 Direct Bilirubin 0.00 Indirect Bilirubin 0.3 Aspartate Amino Transf (AST/SGOT) 71 H Alanine Aminotransferase (ALT/SGPT) 77 H Alkaline Phosphatase 237 H Total Protein 6.4 Albumin 2.9 L Globulin 3.50 H Albumin/Globulin Ratio 0.82 Medications Medications Current Medications Ondansetron HCl (Zofran Inj) 4 mg Q6H PRN IV NAUSEA AND/OR VOMITING Last administered on 08/10/16 17:18; Admin Dose 4 MG; Start 08/10/16 at 14:00 Acetaminophen (Tylenol Tab) 650 mg Q6H PRN PO PAIN LEVEL 1-3 OR FEVER; Start at 14:00 Acetaminophen/ Hydrocodone Bitart ([place] (5/325)) 1 tab Q6H PRN PO MODERATE PAIN LEVEL 4-6 Last administered on 08/12/16 08:48; Admin Dose 1 TAB; Start 08/10 at 14:00 Morphine Sulfate (morphine) 2 mg Q4H PRN IV SEVERE PAIN LEVEL 7-10 Last administered on 08/12/16 10:43; Admin Dose 2 MG; Start 08/10/16 at 14:00 Famotidine (Pepcid) 20 mg Q12 PO Last administered on 08/12/16 08:50; Admin Dose 20 MG; Start 08/10/16 at 21:00 Heparin Sodium (Porcine) 5000 unit 5,000 unit Q12 SC Last administered on 09:01; Admin Dose 5,000 UNIT; Start 08/10/16 at 21:00 Sodium Chloride (NS) 1,000 ml @ 100 mls/hr Q10H IV Last administered on 02:32; Admin Dose 100 MLS/HR; Start 08/10/16 at 14:30 Cholecalciferol 1000 unit 1,000 unit DAILY PO Last administered on 08/12/16 08: 51; Admin Dose 1,000 UNIT; Start 08/11/16 at 09:00 Ceftriaxone Sodium (Rocephin) 50 ml @ 100 mls/hr Q24H IVPB Last administered on 08/11/16 15:22; Admin Dose 100 MLS/HR; Start 08/11/16 at 15:00 Clonidine (Catapres) 0.1 mg Q6H PRN PO ELEVATED BLOOD PRESSURE Last administered on 08/12/16 08:51; Admin Dose 0.1 MG; Start 08/12/16 at 09:00 LINK ROSS MD August 12, 2016 13:20
[2016-08-12] MEDS: CEFTRIAXONE 1 GM/50 ML (PMX) 50 ML IVPB SCH (14:31)
[2016-08-12] MEDS: KETOROLAC 30 MG INJ IV PRN (16:43)
[2016-08-12 19:00] VITALS: BP 140/65; RESP 19
[2016-08-12] MEDS: CARISOPRODOL 350 MG TAB PO SCH (20:58)
[2016-08-13] MEDS: morphine 2 MG INJ IV PRN ×5 (00:05→22:08)
[2016-08-13] MEDS: SOD CHLORIDE 0.9% 1,000 ML IV SCH ×4 (00:07→18:42)
[2016-08-13] MEDS: KETOROLAC 30 MG INJ IV PRN ×3 (01:01→13:13)
[2016-08-13 04:53] LABS: ADD SCAN DIFF NO
[2016-08-13 05:00] LABS: HEMATOCRIT 30.6 % (37.0-47.0); MEAN CORPUSCULAR HEMOGLOBIN 28.9 pg (29.0-33.0); MEAN CORPUSCULAR HGB CONC 32.7 g/dl (32.0-37.0); MEAN CORPUSCULAR VOLUME 88.4 fl (82.0-101.0); MEAN PLATELET VOLUME 10.8 fl (7.4-10.4); PLATELET COUNT 249 10^3/UL (140-415); RED BLOOD COUNT 3.46 10^6/ul (4.20-5.40); RED CELL DISTRIBUTION WIDTH 14.9 % (11.5-14.5)
[2016-08-13 05:30] LABS: ALBUMIN 2.7 g/dl (3.3-4.9); ALBUMIN/GLOBULIN RATIO 0.75; BILIRUBIN,INDIRECT 0.1 mg/dl (0-1.1); BILIRUBIN,TOTAL 0.1 mg/dl (0.2-1.3); CALCIUM 7.8 mg/dl (8.4-10.2); CREATININE 0.62 mg/dl (0.44-1.00); POTASSIUM 3.7 mmol/L (3.5-5.1); TOTAL PROTEIN 6.3 g/dl (6.1-8.1)
[2016-08-13 07:46] LABS: EOSINOPHILS # 0.2 10^3/ul (0.0-0.5)
[2016-08-13 08:12] VITALS: BP 186/86; RESP 20
[2016-08-13] MEDS: FAMOTIDINE 20 MG TAB PO SCH ×2 (08:48→20:29)
[2016-08-13] MEDS: CARISOPRODOL 350 MG TAB PO SCH ×3 (08:48→20:29)
[2016-08-13] MEDS: CHOLECALCIFEROL 1,000 UNIT TAB PO SCH (08:48)
[2016-08-13] MEDS: HEPARIN 5,000 UNIT/0.5 ML VIAL SC SCH ×2 (08:50→20:39)
[2016-08-13 10:02] LABS: MONOCYTE # 0.5 10^3/ul (0.3-0.9)
[2016-08-13 11:57] VITALS: BP 137/65; PULSE 66; RESP 20
--- NOTE | 2016-08-13 12:49 | PN ---
DATE: 08/13/2016 INFECTIOUS DISEASE PROGRESS NOTE SUBJECTIVE: No events overnight. No fevers. The patient is awake, sitting up in a chair. No naus ea, vomiting, diarrhea. VITAL SIGNS: Her blood pressure this morning was high at 186/86. LABORATORY DATA: WBC today 10, neutrophils 80, BUN 12, creatinine 0.62. MICROBIOLOGY: Repeat blood and urine cultures remain negative. ANTIMICROBIALS: Rocephin. PHYSICAL EXAMINATION: GENERAL: Morbidly obese elderly woman who is awake, in no distress. HEENT: Head atraumatic, normocephalic. Sclerae anicteric. Buccal mucosa pink. NECK: Supple. CHEST: Rise symmetrical. Breath sounds clear. HEART: S1, S2. ABDOMEN: Soft, bowel sounds present. EXTREMITIES: Without cyanosis. ASSESSMENT: 1. Escherichia coli pyelonephritis with bacteremia. 2. Obesity. PLAN: The patient remains stable. Repeat blood cultures negative. White blood cell count tracing down, no fevers, she is on appropriate antimicrobials. Anticipate changing to oral Levaquin to comp lete 2 weeks treatment. Dictated By: JOAN POLK CROP QUANTITATIVE GENETICIST for LEATHA DIOR/JOLANTA Conf#: [id number] DID#: [id number]
--- NOTE | 2016-08-13 13:35 | PN ---
Date/Time of Note Date/Time of Note DATE: 08/13/16 TIME: 13:31 Assessment/Plan VTE Prophylaxis VTE Prophylaxis Intervention: heparin Lines/Catheters IV Catheter Type (from Nrsg): Peripheral IV Urinary Cath still in place: No Assessment/Plan Assessment/Plan 1. Low back pain,MRI, lumbar 2. Urinary tract infection, improving, on cefepime 3. Bacteremia, on cefepime 4. Acute renal failure, from ATN, improved 5. Obesity 6. Mild anemia 7. DVT prophylaxis: heparin Subjective 24 Hr Interval Summary Free Text/Dictation whole lower back pain today, down to the buttocks, not to the legs, no weakness or numbness on lower extremities Exam/Review of Systems Vital Signs Vitals Vital Signs Date Time Temp Pulse Resp B/P Pulse Ox O2 Delivery O2 Flow Rate FiO2 08/13/16 11:57 66 20 137/65 96 08/13/16 08:12 97.8 08/10/16 18:46 Room Air Intake and Output 08/12/16 08/12/16 08/13/16 15:00 23:00 07:00 Intake Total 1450 ml 700 ml Output Total 900 ml 800 ml Balance 550 ml -100 ml Exam Constitutional: alert, oriented, well developed Psych: nl mood/affect, no complaints Head: atraumatic, normocephalic Eyes: EOMI, PERRL, nl conjunctiva, nl lids ENMT: nl external ears & nose, nl lips & teeth, nl nasal mucosa & septum Neck: non-tender, supple Respiratory: clear to auscultation, normal air movement, No congested cough, No crackles/rales, No diminished breath sounds, No intercostal retraction, No labored breathing, No other, No respirations, No tactile fremitus, No wheezing Cardiovascular: nl pulses, regular rate and rhythm, No S3, No S4, No bruits, No diastolic murmur, No edema, No gallop, No irregular rhythm, No jugular venous distention (JVD), No murmurs/extra sounds, No other, No rub, No systolic murmur Gastrointestinal: nl liver, spleen, non-tender, soft, No ascites, No bowel sounds, No distended, No firm, No hepatomegaly, No mass , No other, No rebound or guarding, No splenomegaly, No surgical scars, No tender Musculoskeletal: nl extremities to inspection, other (lower spinal tenderness) Extremities: normal pulses, No calf tenderness, No clubbing, No cyanosis, No edema, No other, No palpable cord, No pitting pedal edema, No tenderness Neurological: ADJUSTER II-XII intact, nl mental status, nl speech, nl strength Skin: nl turgor Lymph: nl lymph nodes Results Result Diagram: 08/13/16 0430 08/13/16 0430 Results 24 hrs Laboratory Tests Test 08/13/16 04:30 White Blood Count 10.0 # Red Blood Count 3.46 L Hemoglobin 10.0 L Hematocrit 30.6 L Mean Corpuscular Volume 88.4 Mean Corpuscular Hemoglobin 28.9 L Mean Corpuscular Hemoglobin Concent 32.7 Red Cell Distribution Width 14.9 H Platelet Count 249 Mean Platelet Volume 10.8 H Neutrophils % 80.0 H Band Neutrophils % 3.0 Lymphocytes % 10.0 L Monocytes % 5.0 Eosinophils % 2.0 Basophils % Pending Nucleated Red Blood Cells % 0.0 Neutrophils # 8.0 H Lymphocytes # 1.0 Monocytes # 0.5 Eosinophils # 0.2 Basophils # Pending Nucleated Red Blood Cells # 0.0 Sodium Level 135 Potassium Level 3.7 Chloride Level 107 Carbon Dioxide Level 25 Anion Gap 7 #L Blood Urea Nitrogen 12 Creatinine 0.62 Glucose Level 114 Calcium Level 7.8 L Magnesium Level 2.3 Total Bilirubin 0.1 L Direct Bilirubin 0.00 Indirect Bilirubin 0.1 Aspartate Amino Transf (AST/SGOT) 43 Alanine Aminotransferase (ALT/SGPT) 61 Alkaline Phosphatase 210 H Total Protein 6.3 Albumin 2.7 L Globulin 3.60 H Albumin/Globulin Ratio 0.75 Medications Medications Current Medications Ondansetron HCl (Zofran Inj) 4 mg Q6H PRN IV NAUSEA AND/OR VOMITING Last administered on 08/10/16 17:18; Admin Dose 4 MG; Start 08/10/16 at 14:00 Acetaminophen (Tylenol Tab) 650 mg Q6H PRN PO PAIN LEVEL 1-3 OR FEVER; Start at 14:00 Acetaminophen/ Hydrocodone Bitart ([place] (5/325)) 1 tab Q6H PRN PO MODERATE PAIN LEVEL 4-6 Last administered on 08/12/16 14:31; Admin Dose 1 TAB; Start 08/10 at 14:00 Morphine Sulfate (morphine) 2 mg Q4H PRN IV SEVERE PAIN LEVEL 7-10 Last administered on 08/13/16 11:45; Admin Dose 2 MG; Start 08/10/16 at 14:00 Famotidine (Pepcid) 20 mg Q12 PO Last administered on 08/13/16 08:48; Admin Dose 20 MG; Start 08/10/16 at 21:00 Heparin Sodium (Porcine) 5000 unit 5,000 unit Q12 SC Last administered on 08:50; Admin Dose 5,000 UNIT; Start 08/10/16 at 21:00 Sodium Chloride (NS) 1,000 ml @ 100 mls/hr Q10H IV Last administered on 08:51; Admin Dose 100 MLS/HR; Start 08/10/16 at 14:30 Cholecalciferol 1000 unit 1,000 unit DAILY PO Last administered on 08/13/16 08: 48; Admin Dose 1,000 UNIT; Start 08/11/16 at 09:00 Ceftriaxone Sodium (Rocephin) 50 ml @ 100 mls/hr Q24H IVPB Last administered on 08/12/16 14:31; Admin Dose 100 MLS/HR; Start 08/11/16 at 15:00 Clonidine (Catapres) 0.1 mg Q6H PRN PO ELEVATED BLOOD PRESSURE Last administered on 08/13/16 08:49; Admin Dose 0.1 MG; Start 08/12/16 at 09:00 Carisoprodol (Soma) 350 mg TID PO Last administered on 08/13/16 13:13; Admin Dose 350 MG; Start 08/12/16 at 21:00 Ketorolac Tromethamine (Toradol) 30 mg Q6H PRN IV PAIN Last administered on 08/13 13:13; Admin Dose 30 MG; Start 08/12/16 at 13:40; Stop 08/15/16 at 13:39 LINK ROSS MD August 13, 2016 13:35
[2016-08-13] MEDS: CEFTRIAXONE 1 GM/50 ML (PMX) 50 ML IVPB SCH (15:09)
[2016-08-13 20:27] VITALS: BP 153/70; PULSE 70
[2016-08-13 21:04] LABS: PLATELET ESTIMATE PLT APPEAR ADEQUATE
[2016-08-13 21:06] LABS: TOTAL CELLS COUNTED % 100
[2016-08-14] MEDS: morphine 2 MG INJ IV PRN (03:55)
[2016-08-14] MEDS: SOD CHLORIDE 0.9% 1,000 ML IV SCH (05:37)
[2016-08-14] MEDS: HYDROCODONE/APAP (5/325) TAB PO PRN ×2 (06:36→12:39)
--- NOTE | 2016-08-14 08:31 | RADRPT ---
PROCEDURE: MR Lumbar Spine without contrast. CLINICAL INDICATION: Back pain. Sepsis. TECHNIQUE: Multiplanar multisequence MRI of the lumbar spine was performed. COMPARISON: No similar studies are submitted for comparison. FINDINGS: There is a normal lumbar lordosis. The vertebral body heights are maintained. There is normal alignment. There is no destructive osseous lesion. There are mild Modic type 1 degenerative changes at the superior L4 endplate. Otherwise there is no abnormal bone marrow edema. There is a 5 mm hemangioma within the L3 vertebral body.. There is also a 5 mm L5 vertebral body hemangioma. There is disk desiccation from T12-L1, 5 S1. The conus medullaris is at the T12 level. The cauda equina is unremarkable. T12-L1 : There is a 1 mm broad-based disk bulge without spinal canal or bilateral foraminal stenosis . L1-L2 : There is a 1 mm broad-based disk bulge and a 1 mm right disk protrusion with mild bilateral facet arthropathy without spinal canal stenosis. There is mild to moderate left with mild right for aminal stenosis. L2-L3 : There is a 2 mm broad-based disk bulge and mild bilateral facet arthropathy and ligamentum f lavum infolding without spinal canal stenosis. There is no bilateral foraminal stenosis. L3-L4 : There is a 1 mm broad-based disk bulge and mild bilateral facet arthropathy without spinal c anal stenosis. There is mild to moderate right without left foraminal stenosis. L4-L5 : There is a 1 mm broad-based disk bulge and moderate bilateral facet arthropathy without spin al canal stenosis. There is moderate right with mild to moderate left foraminal stenosis with conta ct of the exiting right L4 nerve root. L5-S1 : There is a 2 mm circumferential disk bulge and mild bilateral facet arthropathy without spin al canal stenosis. There is no bilateral foraminal stenosis. There is a 5 mm dorsally oriented left synovial facet cyst. The paraspinal musculature are within normal limits. IMPRESSION: 1. Multilevel degenerative changes most pronounced at L4-L5 where there is a minimal broad-based di sk bulge with moderate right with and to moderate left foraminal stenosis with contact of the exitin g right L4 nerve root. 2. No acute compression fracture. Further findings as detailed above. RPTAT: PP .Juve Knutson MD, MD Date Time Electronically viewed and signed by .Juve Knutson MD, MD on 08/14/2016 08:31 .F/
[2016-08-14] MEDS: CHOLECALCIFEROL 1,000 UNIT TAB PO SCH (08:41)
[2016-08-14] MEDS: FAMOTIDINE 20 MG TAB PO SCH (08:41)
[2016-08-14] MEDS: CARISOPRODOL 350 MG TAB PO SCH ×2 (08:41→12:39)
[2016-08-14] MEDS: KETOROLAC 30 MG INJ IV PRN (08:41)
[2016-08-14] MEDS: HEPARIN 5,000 UNIT/0.5 ML VIAL SC SCH (08:42)
[2016-08-14] MEDS ORDERED: HYDR-3498 PO (11:53)
[2016-08-14] MEDS ORDERED: LEVO500T72 PO (11:53)
--- NOTE | 2016-08-14 12:00 | DS ---
Date/Time of Note Date/Time of Note DATE: 08/14/16 TIME: 11:55 Discharge Summary Admission/Discharge Info Admit Date/Time August 10, 2016 at 12:57 Discharge Date/Time Final Diagnosis 1. E. Coli Urinary tract infection, improved, on levaquin 2. E. Coli bacteremia, stable, on levaquin 3. Acute renal failure, from ATN, improved 4. Low back pain, norco prn, PT 5. Obesity 6. Mild anemia Patient Condition: Stable Hospital Course This is a 65-year-old female who denies any significant past medical history. She came to the emergency room on 08/09/2016 with complaints of fevers and low back pain that have been going on for 5 days. The patient was discharged home on ciprofloxacin for suspected urinary tract infection. The patient's blood cultures and urine cultures drawn from 08/09/2016 showed gram- negative bacteria. Hence, the patient was called back to the emergency room for further treatment and evaluation. In the emergency room, the patient was noticed to have a fever of 101.4. The patient also had underlying lactic acidosis. The patient's WBC was 13.7. The patient had a BUN and creatinine of 28 and 1.25 respectively. The patient's urinalysis was negative for any leukocyte esterase or nitrite. The patient was treated with IV fluids, IV analgesics, antiemetics and a single dose of IV cefepime. The patient was complaining of bilateral flank pain and suprapubic pain. The patient verbalized a single episode of diarrhea on 08/09/2016. She was complaining of fevers and chills. The patient denied any chest pain, dyspnea, hypoxia, nausea , or vomiting. Blood culture and urine culture both positive for E. Coli, that she will be on levaquin for 10 more days. Patient has low back pain. MRI only degenerative changes. She will be on norco prn for pain and home physical therapy. [place] [id number] Radiology Main Line: [phone] DIAGNOSTIC IMAGING REPORT Patient: KENNA LOZANO : 1950 Age: 65 Sex: F MR #: [id number] DOS: 08/13/16 0000 Ordering MD: LINK ROSS MD Location: [facility] Room/Bed: 420-A PROCEDURE: MR Lumbar Spine without contrast. CLINICAL INDICATION: Back pain. Sepsis. TECHNIQUE: Multiplanar multisequence MRI of the lumbar spine was performed. COMPARISON: No similar studies are submitted for comparison. FINDINGS: There is a normal lumbar lordosis. The vertebral body heights are maintained. There is normal alignment. There is no destructive osseous lesion. There are mild Modic type 1 degenerative changes at the superior L4 endplate. Otherwise there is no abnormal bone marrow edema. There is a 5 mm hemangioma within the L3 vertebral body.. There is also a 5 mm L5 vertebral body hemangioma. There is disk desiccation from T12-L1, 5 S1. The conus medullaris is at the T12 level. The cauda equina is unremarkable. T12-L1 : There is a 1 mm broad-based disk bulge without spinal canal or bilateral foraminal stenosis. L1-L2 : There is a 1 mm broad-based disk bulge and a 1 mm right disk protrusion with mild bilateral facet arthropathy without spinal canal stenosis. There is mild to moderate left with mild right foraminal stenosis. L2-L3 : There is a 2 mm broad-based disk bulge and mild bilateral facet arthropathy and ligamentum flavum infolding without spinal canal stenosis. There is no bilateral foraminal stenosis. L3-L4 : There is a 1 mm broad-based disk bulge and mild bilateral facet arthropathy without spinal canal stenosis. There is mild to moderate right without left foraminal stenosis. L4-L5 : There is a 1 mm broad-based disk bulge and moderate bilateral facet arthropathy without spinal canal stenosis. There is moderate right with mild to moderate left foraminal stenosis with contact of the exiting right L4 nerve root. L5-S1 : There is a 2 mm circumferential disk bulge and mild bilateral facet arthropathy without spinal canal stenosis. There is no bilateral foraminal stenosis. There is a 5 mm dorsally oriented left synovial facet cyst. The paraspinal musculature are within normal limits. IMPRESSION: 1. Multilevel degenerative changes most pronounced at L4-L5 where there is a minimal broad-based disk bulge with moderate right with and to moderate left foraminal stenosis with contact of the exiting right L4 nerve root. 2. No acute compression fracture. Further findings as detailed above. RPTAT: PP .Juve Knutson MD, MD Date Time Electronically viewed and signed by .Juve Knutson MD, on 08/14/2016 08:31 .F/ CC: LNIK ROSS MD Home Meds Active Scripts Levofloxacin* (Levaquin*) 500 Mg Tablet, 500 MG PO DAILY for 10 Days, TAB Prov:LINK ROSS MD 08/14/16 Hydrocodone Bit-Acetaminophen (Hydrocodone Bit-APAP) 5-325MG Tablet, 1 TAB PO Q6H Y for MODERATE PAIN LEVEL 4-6 for 30 Days, TAB Prov:LINK ROSS MD 08/14/16 Acetaminophen* (Tylenol*) 500 Mg Tab, 500 MG PO Q4H Y for MILD PAIN LEVEL 1-3, # 14 TAB Prov:LIZZIE MIGUEL MD 08/09/16 Discontinued Scripts Ondansetron (Ondansetron Odt) 8 Mg Tab.rapdis, 8 MG PO Q6H Y for NAUSEA AND/OR VOMITING, #5 TAB Prov:LIZZIE MIGUEL MD 08/09/16 Ciprofloxacin Hcl* (Ciprofloxacin Hcl*) 500 Mg Tablet, 500 MG PO BID for 10 Days , TAB Prov:LIZZIE MIGUEL MD 08/09/16 Follow-up Plan PCP in one week Home PT LINK ROSS MD August 14, 2016 12:00
--- NOTE | 2016-08-14 13:32 | CONS ---
Date/Time of Note Date/Time of Note DATE: 08/14/16 TIME: 13:31 Assessment/Plan Assessment/Plan Chief Complaint/Hosp Course SUBJECTIVE: No events overnight. No fevers. The patient is awake, sitting up in a chair. No nausea, vomiting, diarrhea. MICROBIOLOGY: Repeat blood and urine cultures remain negative. ANTIMICROBIALS: Rocephin. PHYSICAL EXAMINATION: GENERAL: Morbidly obese elderly woman who is awake, in no distress. HEENT: Head atraumatic, normocephalic. Sclerae anicteric. Buccal mucosa pink. NECK: Supple. CHEST: Rise symmetrical. Breath sounds clear. HEART: S1, S2. ABDOMEN: Soft, bowel sounds present. EXTREMITIES: Without cyanosis. ASSESSMENT: 1. Escherichia coli pyelonephritis with bacteremia. 2. Obesity. PLAN: The patient remains stable. Repeat blood cultures negative. Ok dc oral Levaquin to complete 2 weeks treatment. [facility] staff Problems: Consultation Date/Type/Reason Admit Date/Time August 10, 2016 at 12:57 Initial Consult Date Type of Consultation: ID Exam/Review of Systems Vital Signs Vitals Vital Signs Date Time Temp Pulse Resp B/P Pulse Ox O2 Delivery O2 Flow Rate FiO2 08/13/16 20:27 98.5 70 153/70 93 08/13/16 11:57 20 08/10/16 18:46 Room Air Intake and Output 08/13/16 08/13/16 08/14/16 15:00 23:00 07:00 Intake Total 1000 ml 2600 ml 650 ml Output Total 1400 ml 2700 ml Balance 1000 ml 1200 ml -2050 ml Results Result Diagram: 08/13/16 0430 08/13/16 0430 Medications Medications Current Medications Ondansetron HCl (Zofran Inj) 4 mg Q6H PRN IV NAUSEA AND/OR VOMITING Last administered on 08/10/16 17:18; Admin Dose 4 MG; Start 08/10/16 at 14:00 Acetaminophen (Tylenol Tab) 650 mg Q6H PRN PO PAIN LEVEL 1-3 OR FEVER; Start at 14:00 Acetaminophen/ Hydrocodone Bitart ([place] (5/325)) 1 tab Q6H PRN PO MODERATE PAIN LEVEL 4-6 Last administered on 08/14/16 12:39; Admin Dose 1 TAB; Start 08/10 at 14:00 Morphine Sulfate (morphine) 2 mg Q4H PRN IV SEVERE PAIN LEVEL 7-10 Last administered on 08/14/16 03:55; Admin Dose 2 MG; Start 08/10/16 at 14:00 Famotidine (Pepcid) 20 mg Q12 PO Last administered on 08/14/16 08:41; Admin Dose 20 MG; Start 08/10/16 at 21:00 Heparin Sodium (Porcine) 5000 unit 5,000 unit Q12 SC Last administered on 08:42; Admin Dose 5,000 UNIT; Start 08/10/16 at 21:00 Sodium Chloride (NS) 1,000 ml @ 100 mls/hr Q10H IV Last administered on 05:37; Admin Dose 100 MLS/HR; Start 08/10/16 at 14:30 Cholecalciferol 1000 unit 1,000 unit DAILY PO Last administered on 08/14/16 08: 41; Admin Dose 1,000 UNIT; Start 08/11/16 at 09:00 Ceftriaxone Sodium (Rocephin) 50 ml @ 100 mls/hr Q24H IVPB Last administered on 08/13/16 15:09; Admin Dose 100 MLS/HR; Start 08/11/16 at 15:00 Clonidine (Catapres) 0.1 mg Q6H PRN PO ELEVATED BLOOD PRESSURE Last administered on 08/13/16 08:49; Admin Dose 0.1 MG; Start 08/12/16 at 09:00 Carisoprodol (Soma) 350 mg TID PO Last administered on 08/14/16 12:39; Admin Dose 350 MG; Start 08/12/16 at 21:00 Ketorolac Tromethamine (Toradol) 30 mg Q6H PRN IV PAIN Last administered on 08/14 08:41; Admin Dose 30 MG; Start 08/12/16 at 13:40; Stop 08/15/16 at 13:39 JOAN POLK NP August 14, 2016 13:32
== END 2016-08-14 14:18 | disposition home or self-care (01) | DRG 871 ==
LOC: E/R 10:04 → MS1 12:57
PROVIDERS: ADMIT Family Medicine; ATTEND Family Medicine
DX: A41.51 Sepsis due to Escherichia coli [E. coli] (principal); N17.0 Acute kidney failure with tubular necrosis; N39.0 Urinary tract infection, site not specified; N10 Acute pyelonephritis; E87.1 Hypo-osmolality and hyponatremia; A41.50 Gram-negative sepsis, unspecified; E66.01 Morbid (severe) obesity due to excess calories; M54.5 Low back pain; D64.9 Anemia, unspecified; Z68.36 Body mass index [BMI] 36.0-36.9, adult; Z88.6 Allergy status to analgesic agent
CPT/HCPCS: 36415; 71010; 72148; 74176; 80053; 80061; 81001; 81003; 82652; 83036; 83605; 83690; 83735; 84100; 84439; 84443; 84484; 85025; 85610; 85730; 87040; 87086; 93005; 96365; 96366; 96367; 96375; 96376; J0692; J0696; J0743; J1644; J1885; J2270; J2405; J7030; P9612